=== PATIENT | male | born 1990 | race African-American/Black ===

== ENCOUNTER 2023-04-25 20:01 | Emergency (ER) | payer SELFPAY ==
[2023-04-25 20:07] VITALS: BP 162/102; RESP 16; TEMP 36.3; O2SAT 99; BMI 31.7
--- NOTE | 2023-04-25 21:46 | ED.DENTAL ---
HPI - Dental/Oral General Time Seen by Provider: 21:46 Date Seen: 04/25/23 Chief complaint: Dental/Oral/Mouth Injury/Pain Stated complaint: Toothache Time Seen by Provider: 04/25/23 21:45 Source: patient and RN notes reviewed Mode of arrival: ambulatory Limitations: no limitations History of Present Illness HPI Narrative: Patient is a [id number] here with a female whom I presume is his significant other. He is complaining of dental pain, symptoms started yesterday. She states the tooth chipped off. He has had to have a tooth pulled before. He has tried Tylenol and ibuprofen without any relief. They are wondering if they can get an antibiotic and some pain management. The do not have a dentist. No fevers. Related Data Previous Rx's Medication Instructions Recorded penicillin V potassium 500 mg 500 mg PO TID #20 tabs 04/25/23 tablet Allergies Allergy/AdvReac Type Severity Reaction Status Date / Time No Known Drug Allergies Allergy Verified 04/25/23 20:09 Review of Systems Narrative: As per HPI. Exam Const: Vital Signs, click to edit/add: Vital Signs - 24 hr 04/25/23 20:07 Temperature 97.3 F L Respiratory Rate 16 Blood Pressure [Ri ght Upper Arm] 162/102 H Pulse Oximetry 99 Oxygen Delivery Me thod Room Air patient is moaning when I come into the room lightly, is putting his head into the female next to him, moving about on the bed some. He does sub doing this when I asked to examine him. He is certainly a pleasant gentleman. Face is atraumatic, noticed no swelling or erythema externally. He can open his mouth easily, it is the left lower jaw where there appears to be a small little opening in the gumline in the tooth is gone. They states this tooth has not been hold but I see no residual broken tooth or dentition in the area. There is a little central ulceration into the gumline. It is possible that this tooth could have been pulled and there is maybe a bit of root that is starting to abscess, note no fluctuance or abscess pocket along the gumline at this time. There is no significant erythema. Documenting provider has reviewed patient's vital signs: yes Course Course ED Course: Did review with them that we typically do not do narcotics for dental pain. I will agree to give him a dose of pain medicine here tonight to help with sleep, have also offered Toradol IM which they will take. We will give him his 1st dose of oral antibiotics here and then send a prescription in for the rest of the antibiotics to the pharmacy for them. They understand that he will need to get to a dentist, nursing staff is going to get him some information that we have on possible contacts for dentistry. Vital Signs Vital signs: Initial Vital Signs Temperature 97.3 F L 04/25/23 20:07 Temperature Source Temporal Artery Scan 04/25/23 20:07 Respiratory Rate 16 04/25/23 20:07 Blood Pressure 162/102 H 04/25/23 20:07 Blood Pressure Mean 122 H 04/25/23 20:07 Blood Pressure Position Sitting 04/25/23 20:07 Pulse Oximetry 99 04/25/23 20:07 Oxygen Delivery Method Room Air 04/25/23 20:07 Vital Signs Temperature 97.3 F L 04/25/23 20:07 Respiratory Rate 16 04/25/23 20:07 Blood Pressure 162/102 H 04/25/23 20:07 Pulse Oximetry 99 04/25/23 20:07 Oxygen Delivery Method Room Air 04/25/23 20:07 Temperature 97.3 F L 04/25/23 20:07 Respiratory Rate 16 04/25/23 20:07 Blood Pressure 162/102 H 04/25/23 20:07 Pulse Oximetry 99 04/25/23 20:07 Oxygen Delivery Method Room Air 04/25/23 20:07 Discharge Plan Discharge Clinical Impression: Pain, dental Patient Disposition: Home, Self-Care Condition: Stable Instructions: Dental Abscess (ED), Toothache (ED) Additional Instructions: Continue with penicillin, rest of prescription sent to the pharmacy, next dose due tomorrow morning. Continue with pain management with Tylenol 1000 mg 3 times a day. Can supplement with ibuprofen per bottle directions as needed. You need to get to a dentist for definitive care of this tooth. Please work on a dental appointment 1st thing tomorrow morning. Activity Level: Activity as Tolerated Discharge Diet: Regular Prescriptions: New penicillin V potassium 500 mg tablet 500 mg PO TID Qty: 20 0RF Stand Alone Forms: MyHealth Info Instructions
[2023-04-25] MEDS: KETOROLAC 30 MG/ML inj IM (22:07)
[2023-04-25] MEDS: OXYCODONE 5 MG TABLET PO (22:08)
[2023-04-25] MEDS: PENICILLIN VK 250 MG TABLET 500 MG PO (22:08)
== END 2023-04-25 22:13 | disposition home or self-care (01) ==
LOC: ED 22:05
PROVIDERS: Emergency Provider Family Medicine
DX: K08.89 Other specified disorders of teeth and supporting structures (principal)
CPT/HCPCS: 96372; 99282; 99283; 99284; A9270; J1885